=== PATIENT | female | born 1955 | race Caucasian/White ===

== ENCOUNTER 2016-12-28 09:38 | Outpatient (CLI) | payer OTHER ==
--- NOTE | 2016-12-28 12:45 | MMO ---
BILATERAL DIGITAL SCREENING MAMMOGRAMS: Date: 12/28/16 HISTORY: 61-year-old female presents for digital screening mammogram. COMPARISON: 12/25/15, 12/20/14, 12/20/13, 12/16/12. FINDINGS: This patient's mammogram was interpreted with the assistance of computer-aided detection. Scattered areas of fibroglandular density noted bilaterally. There are a few scattered typically daisha gn calcifications bilaterally. No direct or indirect evidence of malignancy. Stable parenchymal densi ty asymmetry left breast. IMPRESSION: BIRADS 2: Benign Finding(s) Continue routine screening. POS: MARIE
== END 2016-12-28 09:39 | disposition home or self-care (01) ==
LOC: SCSMAMMO 09:38
PROVIDERS: ATTEND Obstetrics & Gynecology
DX: Z12.31 Encounter for screening mammogram for malignant neoplasm of breast (principal)
CPT/HCPCS: 77067; G0202

== ENCOUNTER 2018-01-06 09:57 | Day surgery (SDC) | payer OTHER ==
[2018-01-05 12:49] VITALS: BMI 25.8
[2018-01-06] MEDS ORDERED: PROPOFOL 200 MG/20 ML VIAL ONE (11:32)
--- NOTE | 2018-01-06 21:49 | OP ---
DATE OF PROCEDURE: 01/06/2018 TITLE OF PROCEDURE: Colonoscopy. PREPROCEDURE DIAGNOSES: 1. High-risk colon cancer screening. 2. History of colon cancer in a first-degree relative (mother) at age over 60. POSTPROCEDURE DIAGNOSES: 1. Exam to cecum; adequate bowel preparation. 2. Mildly tortuous transverse colon. 3. Small internal hemorrhoids. 4. Otherwise normal colonoscopy; no polyps seen. PROCEDURE IN DETAIL: Written informed consent was obtained. The patient was brought to the endoscopy suite. Total intravenous anesthesia was provided by Dr. Mickey Rasmussen. The patient was placed in the left lateral decubitus position. A digital rectal exam showed small nonbleeding external hemorrhoids. A Pentax video colonoscope was inserted through the anal canal and advanced under direct visualization to the cecum. Position in the cecum was verified by identification of the ileocecal valve and appendiceal orifice. The quality of the bowel preparation was adequate. A moderate amount of brown liquid water with debris pooled in several areas of the colon including the transverse and ascending colon. Most of this extra fluid was removed through the colonoscope. Vascular pattern and haustral folds of the colon appeared normal. No polyp or diverticular orifice was identified. In the rectum, a retroflexed view demonstrated small internal hemorrhoids. The colon was decompressed as the colonoscope was removed from the patient. She was transferred to the Day Stay Surgery area for postprocedure monitoring. There were no immediate complications. RECOMMENDATIONS: 1. Resume previous diet and medications. 2. Repeat colonoscopy in 5 years. 3. Followup with Gastroenterology as needed. Job ID: [id number]
== END 2018-01-06 14:12 | disposition home or self-care (01) ==
LOC: SDC 09:57
PROVIDERS: ATTEND Internal Medicine Gastroenterology
PROC: 0DJD8ZZ Inspection of Lower Intestinal Tract, Via Natural or Artificial Opening Endoscopic (ICD-10-PCS; principal; 2018-01-06)
DX: Z12.11 Encounter for screening for malignant neoplasm of colon (principal); Z80.0 Family history of malignant neoplasm of digestive organs; K64.8 Other hemorrhoids
CPT/HCPCS: J2704

== ENCOUNTER 2018-01-24 09:17 | Outpatient (CLI) | payer OTHER ==
--- NOTE | 2018-01-24 11:21 | BD ---
BONE DENSITOMETRY USING DEXA: Date: 01/24/18 HISTORY: Postmenopausal screening for osteoporosis. FINDINGS: Lumbar Spine: BMD (g/cm2) L1 0.957 T-Score: -0.3 Z-Score: 1.0 L2 0.999 T-Score: -0.3 Z-Score: 1.1 L3 1.048 T-Score: -0.3 Z-Score: 1.2 L4 1.189 T-Score: 1.2 Z-Score: 2.7 L1-L4 1.063 T-Score: 0.1 Z-Score: 1.6 Femoral Neck: 0.695 T-Score: -1.4 Z-Score: -0.1 Total Femur: 0.913 T-Score: -0.2 Z-Score: 0.7 There has been interval improvement of 1.6% in the bone mineral density of the lumbar spine and impro vement of 4.7% in the bone mineral density of the proximal femur since 04/18/14. The 10 year fracture risk for a major osteoporotic fracture is 16% and for a hip fracture is 0.7%. IMPRESSION: Osteopenia. POS: OFF
== END 2018-01-24 09:18 | disposition home or self-care (01) ==
LOC: BICMAMMO 09:17
PROVIDERS: ATTEND Internal Medicine
DX: Z12.31 Encounter for screening mammogram for malignant neoplasm of breast (principal); Z13.820 Encounter for screening for osteoporosis; M85.859 Other specified disorders of bone density and structure, unspecified thigh; Z78.0 Asymptomatic menopausal state
CPT/HCPCS: 77063; 77067; 77080

== ENCOUNTER 2019-02-16 11:09 | Outpatient (CLI) | payer OTHER ==
--- NOTE | 2019-02-16 15:17 | MMO ---
Bilateral MAMMO Bilat Screen [facility]. CLINICAL HISTORY: Patient is 63 years old and is seen for screening. The patient has no family history of breast cancer. The patient has no personal history of cancer. VIEWS: The views performed were: bilateral craniocaudal with tomosynthesis and bilateral mediolateral oblique with tomosynthesis. FILMS COMPARED: The present examination has been compared to prior imaging studies performed at [facility] on 12/20/2014, 12/25/2015 and 12/28/2016, and at [facility] on 01/24/2018. This study has been interpreted with the assistance of computer-aided detection. MAMMOGRAM FINDINGS: There are scattered fibroglandular densities. There are no suspicious masses, suspicious calcifications, or new areas of architectural distortion. IMPRESSION: THERE IS NO MAMMOGRAPHIC EVIDENCE OF MALIGNANCY. A ROUTINE FOLLOW-UP MAMMOGRAM IN 1 YEAR IS RECOMMENDED. THE RESULTS OF THIS EXAM WERE SENT TO THE PATIENT. ACR BI-RADS Category 1 - Negative MAMMOGRAPHY NOTE: 1. A negative mammogram report should not delay a biopsy if a dominant of clinically suspicious mass is present. 2. Approximately 10% to 15% of breast cancers are not detected by mammography. 3. Adenosis and dense breasts may obscure an underlying neoplasm. Reported by: JOSY BUSTILLO MD Electonically Signed: [id number]
== END 2019-02-16 11:10 | disposition home or self-care (01) ==
LOC: BICMAMMO 11:09
PROVIDERS: ATTEND Obstetrics & Gynecology
DX: Z12.31 Encounter for screening mammogram for malignant neoplasm of breast (principal)
CPT/HCPCS: 77063; 77067

== ENCOUNTER 2020-07-18 09:06 | Outpatient (CLI) | payer OTHER | END 2020-07-18 09:07 | disposition home or self-care (01) | LOC: BICMAMMO 09:06 | PROVIDERS: ATTEND Obstetrics & Gynecology | DX: Z12.31 Encounter for screening mammogram for malignant neoplasm of breast (principal); Z85.828 Personal history of other malignant neoplasm of skin | CPT/HCPCS: 77063; 77067 ==

== ENCOUNTER 2021-07-21 07:51 | Outpatient (CLI) | payer BC | END 2021-07-21 07:52 | disposition home or self-care (01) | LOC: BICMAMMO 07:51 | PROVIDERS: ATTEND Obstetrics & Gynecology | DX: Z12.31 Encounter for screening mammogram for malignant neoplasm of breast (principal); Z85.820 Personal history of malignant melanoma of skin | CPT/HCPCS: 77063; 77067 ==

== ENCOUNTER 2022-09-23 07:50 | Outpatient (CLI) | payer BC | END 2022-09-23 07:51 | disposition home or self-care (01) | LOC: BICMAMMO 07:50 | PROVIDERS: ATTEND Obstetrics & Gynecology | DX: Z12.31 Encounter for screening mammogram for malignant neoplasm of breast (principal); Z85.820 Personal history of malignant melanoma of skin | CPT/HCPCS: 77063; 77067 ==

== ENCOUNTER 2024-10-11 11:47 | Outpatient (CLI) | payer BC | END 2024-10-11 11:48 | disposition home or self-care (01) | LOC: BICMAMMO 11:47 | PROVIDERS: ATTEND Internal Medicine | DX: Z12.31 Encounter for screening mammogram for malignant neoplasm of breast (principal); Z85.820 Personal history of malignant melanoma of skin | CPT/HCPCS: 77063; 77067 ==